=== PATIENT | male | born 1955 | race Two or more races ===

== ENCOUNTER 2022-09-12 09:12 | Outpatient (CLI) | payer OTHER ==
[~2022-09-12 09:12] MED LIST: ADVIL200 MG PO; ULTRAM ER300 MG PO
== END 2022-09-12 09:20 | disposition home or self-care (01) ==
LOC: RAD 09:12
PROVIDERS: ATTEND Internal Medicine Pulmonary Disease
DX: J45.40 Moderate persistent asthma, uncomplicated (principal); J98.6 Disorders of diaphragm; Z87.891 Personal history of nicotine dependence

== ENCOUNTER 2023-01-30 08:48 | Outpatient (CLI) | payer OTHER | END 2023-01-30 08:55 | disposition home or self-care (01) | LOC: RX STUDY 08:48 | PROVIDERS: ATTEND Internal Medicine Pulmonary Disease | DX: J98.6 Disorders of diaphragm (principal); J45.40 Moderate persistent asthma, uncomplicated; Z87.891 Personal history of nicotine dependence ==